=== PATIENT | male | born 1960 | race Caucasian/White ===

== ENCOUNTER 2023-08-01 13:00 | Emergency (ER) | payer MEDICARE, SELFPAY ==
[2023-08-01 13:00] VITALS: BMI 32.9
[2023-08-01 13:02] VITALS: BP 134/78
[2023-08-01 13:28] VITALS: BP 130/89
--- NOTE | 2023-08-01 13:30 | ED.GENMED ---
History of Present Illness
General
Chief Complaint: Abnormal Lab Value
Time Seen by Provider: 08/01/23 13:29
History of Present Illness
History of Present Illness:
HPI: Patient presents due to abnormal outpatient lab value of platelet count 30 two days ago and 27 yesterday. 2 weeks ago he had a really small cut on his finger which he said bled rather excessively but otherwise he notes no significant bleeding
and has no petechial rash. In 2022 his platelet count was 115. No new medications but he does report an MS med given as an infusion in 2016 which caused leukopenia.
EXAM:
GENERAL: Well appearing in no distress
HEENT: Moist oral mucosa
CARDIOVASCULAR: No murmurs, normal heart rate, regular rhythm, No chest wall tenderness
PULMONARY: No respiratory distress, breath sounds are clear and equal
ABDOMEN: Soft with no peritoneal signs, no tenderness
NEUROLOGIC: Excellent strength all extremities, no coordination deficits
PSYCHIATRIC: Appropriate mental status, normal insight and judgement
EXTREMITIES: Nontender, no edema, moves all extremities equally
SKIN: No rash, no lesions, no petechial rash
TIME OF INITIAL ENCOUNTER: 1:40 PM
NUMBER AND COMPLEXITY OF PROBLEMS ADDRESSED AT THE ENCOUNTER
� Chronic conditions affecting care: MS
� Acute Exacerbation and/or Progression of Chronic Illness: This is an acute problem
� Differential Diagnosis includes: ITP, TTP, medication induced thrombocytopenia
AMOUNT AND/OR COMPLEXITY OF DATA TO BE REVIEWED AND ANALYZED
� I performed an independent evaluation of and my interpretation is:
EKG:
CT:
X-rays:
Laboratory Studies: White count 7.1, hemoglobin 14.9, platelets 37, chemistries unremarkable
Other:
� Review of other/old records: I reviewed the lab work on his phone from the [employer] system as summarized above in the HPI
� Clinical information was obtained by an independent historian: I spoke to the at bedside
� Prescriptions/Medications Considered but not given:
� Further testing considered but not performed:
RISK OF COMPLICATIONS AND/OR MORBIDITY OR MORTALITY OF PATIENT MANAGEMENT
� Social determinants of health affecting care: Lives at home
� Discussion with other providers: I discussed his case with Dr. Garcia�he recommends dexamethasone 40 mg orally for 4 days
� Escalation of care including admission/observation vs risk of discharge considered: Will start steroids and he is to follow-up with PMD for repeat CBC early this week. He will follow-up with Dr. Garcia if his platelets continue
to worsen. Suspect ITP.
Phy Exam
Physical Exam
Physical Exam:
See HPI
Course
Orders/Labs/Results
Orders:
Orders
08/01/23 13:30
Complete Blood Count/With Diff Urgent
Comprehensive Metabolic Panel Urgent
Abnormal Lab Results
08/01/23
13:30
Plt Count 37 L 10^3/uL
(130-400)
MPV 13.1 H fL
(7.4-10.4)
Glucose 110 H mg/dl
(70-99)
Alkaline Phosphatase 158 H U/L
(38-126)
08/01/23 13:30
08/01/23 13:30
Vital Signs
Initial and Last Documented VS:
Initial Vital Signs
Temp Pulse Resp BP Pulse Ox
98.9 F 75 18 134/78 99
08/01/23 13:02 08/01/23 13:02 08/01/23 13:02 08/01/23 13:02 08/01/23 13:02
Last Documented Vital Signs
Temp Pulse Resp BP Pulse Ox
98.9 F 75 18 114/75 94
08/01/23 13:02 08/01/23 13:02 08/01/23 13:02 08/01/23 15:00 08/01/23 15:01
*Critical Care Note
Total Time (30-74mins, 75-104mins- exclusive of procedures): Not Applicable
ED Attending Note
-
Portions of this chart may have been created with voice recognition software.� Occasional wrong word or��sound alike� substitutions may have occurred due to the inherent limitations of voice recognition software.
Discharge Plan
Departure
Patient Disposition: Home (Routine Discharge)
Date of Disposition: 08/01/23
Time of Disposition: 15:55
Patient with high blood pressure during this ER visit?: Yes
Discharge Problem:
Thrombocytopenia
Prescriptions:
New
dexamethasone 4 mg tablet
40 mg PO DAILY Qty: 40 0RF
No Action
atorvastatin 40 mg Tablet
40 mg PO HS
ibuprofen [Advil] 200 mg Tablet
200 mg PO BIDPRN PRN (Reason: mild pain)
diltiazem HCl 180 mg capsule,ext.rel 24h degradable
180 mg PO DAILY
magnesium tablet
1 tab PO Q48H
cholecalciferol (vitamin D3) 100 mcg (4,000 unit) Tablet
100 mcg PO DAILY
Referrals:
Tony Reyna MD [Family Provider] -
Rajan Garcia MD [Active] - Follow up in 1 week
Activity Restrictions/Additional Instructions:
Take 10 of the 4 mg strength dexamethasone each morning for the next 4 days. This may lead to trouble sleeping�if you have trouble sleeping I recommend taking Benadryl or [id number] doxylamine. Have a repeat CBC arranged by your primary care
doctor on Friday. The platelet count today is 37. If platelet count drops again, Dr. Garcia wants you to follow-up with him.
Interventions
Interventions:
*Risk Screen - Suicide Last Done: 08/01/23 13:02
*General Assessment Last Done: 08/01/23 13:02
*Neglect/Abuse Screening Last Done: 08/01/23 13:02
ED- Fall Risk Assessment Last Done: 08/01/23 13:47
Discharge Date and Time
Print Language: MALDIVIAN
[2023-08-01 13:44] LABS: % Basophils 0.6 % (0-2); % Eosinophils 1.3 % (0-6); % Immature Granulocytes 0.1 % (0-0.5); % Lymphocytes 22.9 % (20.5-51.1); % Monocytes 7.4 % (1.7-9.3); % Neutrophils 67.7 % (42.2-75.2); Absolute Eosinophils 0.1 10^3/uL (0-0.7); Absolute Lymphocytes 1.6 10^3/uL (1.2-3.4); Absolute Monocytes 0.5 10^3/uL (0.1-0.6); Absolute Neutrophils 4.8 10^3/uL (1.4-6.5); Hematocrit 42.4 % (39.0-52.0); Hemoglobin 14.9 g/dL (13.0-18.0); Mean Corp Hgb Conc. 35.1 g/dL (33.0-37.0); Mean Corpuscular Hgb 30.5 pg (27.0-31.0); Mean Corpuscular Volume 86.7 fL (80.0-94.0); Nucleated Red Blood Cells % 0 % (-); Red Blood Cell Count 4.89 10^6/uL (4.70-6.10); Red Cell Dist. Width 13.2 % (11.5-14.5); White Blood Cell Count 7.1 10^3/uL (4.8-10.8)
[2023-08-01 13:54] LABS: ALT (SGPT) 24 U/L (0-50); AST (SGOT) 26 U/L (17-59); Albumin 4.3 g/dl (3.5-5.0); Alkaline Phosphatase 158 U/L (38-126); Blood Urea Nitrogen 9 mg/dl (9-20); Calcium 9.4 mg/dl (8.4-10.2); Carbon Dioxide 28 mmol/L (22-30); Chloride 105 mmol/L (98-107); Estimated Creatinine Clearance 123 ml/min; Glucose 110 mg/dl (70-99); Potassium 4.2 mmol/L (3.5-5.1); Sodium 141 mmol/L (135-145); Total Bilirubin 0.8 mg/dl (0.2-1.3); Total Protein 6.9 g/dl (6.3-8.2); eGFR > 60.00
[2023-08-01 14:00] VITALS: BP 125/91
[2023-08-01 14:32] LABS: Mean Platelet Volume 13.1 fL (7.4-10.4); Platelet Count 37 10^3/uL (130-400)
[2023-08-01 15:00] VITALS: BP 114/75
[2023-08-01 16:00] VITALS: BP 126/82
== END 2023-08-01 16:27 | disposition home or self-care (01) ==
LOC: EMR 13:00
PROVIDERS: EMERGENCY PHYSICIAN Emergency Medicine; FAMILY PHYSICIAN Family Medicine
DX: D69.6 Thrombocytopenia, unspecified (principal)
CPT/HCPCS: 99283; 80053; 85025

== ENCOUNTER 2024-03-05 15:58 | Emergency (ER) | payer BC, SELFPAY ==
[2024-03-05 16:02] VITALS: BP 138/95
--- NOTE | 2024-03-05 20:04 | ED.GENMED ---
History of Present Illness
General
Chief Complaint: Head Injury
Source: patient
Exam Limitations: none
Time Seen by Provider: 03/05/24 16:59
Nursing documentation reviewed up to this point in time: agreed with
History of Present Illness
History of Present Illness:
Patient states he was outside washing his truck and slpped on icy surface. Fall onto his driveway and hit left parietal scalp. No LOC. Has large hematoma to site. Incident occurred this afternoon. Brought to ED by spouse for eval.
Past History
Past History
ED Past Medical History: None
ED Past Surgical History: None
Review of Systems
Review of Systems
Allergies reviewed?: Yes
All Other Systems: ROS reviewed and negative except as documented in HPI and ROS
Constitutional: Reports no symptoms
EENT: Reports no symptoms
Respiratory: Reports no symptoms
Cardiac: Reports no symptoms
ABD/GI: Reports no symptoms
Musculoskeletal: Reports no symptoms
Skin: Reports other (large hematoma to left parietal scalp.)
Neurological: Reports no symptoms
Psychiatric: Reports no symptoms
Phy Exam
General Physical Exam
General Presentation: well appearing and no apparent distress
General age: appears stated age
General Skin: warm and dry
General Habitus: normal
ENT Exam
ENT Exam: EOMI, TM's normal and neck supple
Eye Exam
Eye Exam: PERRL, EOMI, conjunctiva normal and globe normal
Neurological Exam
Neurological Exam: alert, oriented x3, CN II-XII intact, no motor deficits, no sensory deficits and speech normal
[place] Coma Scale
Eye Opening: Spontaneous
Verbal Response: Oriented
Motor Response: Obeys Commands
GCS Total Score: 15
Musculoskeletal Exam
Musculoskeletal Exam: full ROM and neuro vasc intact
Skin Exam
Skin Exam: normal color, warm/dry, no rash and other (Large hematoma to left parietal scalp)
Psychiatric Exam
Psychiatric Exam: normal mood/affect
Course
Orders/Labs/Results
Orders:
Orders
03/05/24 18:25
CT Head W/o Iv Contrast Urgent
Comment:
Reason For Exam: trauma
Vital Signs
Initial and Last Documented VS:
Initial Vital Signs
Temp Pulse Resp BP Pulse Ox
97.7 F 85 18 138/95 97
03/05/24 16:02 03/05/24 16:02 03/05/24 16:02 03/05/24 16:02 03/05/24 16:02
Last Documented Vital Signs
Temp Pulse Resp BP Pulse Ox
97.7 F 85 18 138/95 97
03/05/24 16:02 03/05/24 16:02 03/05/24 16:02 03/05/24 16:02 03/05/24 16:02
*Radiology
Radiology exam reviewed: radiology read reviewed
*Pulse Oximetry
Patient hypoxic: no
*Critical Care Note
Total Time (30-74mins, 75-104mins- exclusive of procedures): Not Applicable
Update Note
Update Note:
Patient to ED s/p fall. Large hematoma to left parietal scalp. CT neg for bleeding, skull fx. Neurologically baseline. Will discharge home. Given instructions on s/s to return to ED and he is agreeable to plan
ED Attending Note
-
Portions of this chart may have been created with voice recognition software.� Occasional wrong word or��sound alike� substitutions may have occurred due to the inherent limitations of voice recognition software.
Discharge Plan
Departure
Patient Disposition: Home (Routine Discharge)
Date of Disposition: 03/05/24
Time of Disposition: 20:00
Patient with high blood pressure during this ER visit?: No
Condition: Good
Covid-19: Not Applicable
Discharge Problem:
Head injury
Instructions: Head Injury in Adults (DC), Contusion (DC)
Prescriptions:
No Action
atorvastatin 40 mg Tablet
40 mg PO HS
ibuprofen [Advil] 200 mg Tablet
200 mg PO BIDPRN PRN (Reason: mild pain)
diltiazem HCl 180 mg capsule,ext.rel 24h degradable
180 mg PO DAILY
magnesium tablet
1 tab PO Q48H
cholecalciferol (vitamin D3) 100 mcg (4,000 unit) Tablet
100 mcg PO DAILY
dexamethasone 4 mg tablet
40 mg PO DAILY Qty: 40 0RF
Referrals:
Tony Reyna MD [Family Provider] - Follow up in 2-3 days
Interventions
Interventions:
*Risk Screen - Suicide Last Done: 03/05/24 16:02
*General Assessment Last Done: 03/05/24 16:02
*Neglect/Abuse Screening Last Done: 03/05/24 16:02
*ED COVID-19 Vaccine History Last Done: 03/05/24 16:25
ED-Musculoskeletal Assessment Last Done: 03/05/24 16:25
ED- Neurological Assessment Last Done: 03/05/24 16:25
ED-Skin Assessment Last Done: 03/05/24 16:25
Discharge Date and Time
Print Language: MOHAWK
== END 2024-03-05 20:31 | disposition home or self-care (01) ==
LOC: EMR 15:58
PROVIDERS: EMERGENCY PHYSICIAN Student in an Organized Health Care Education/Training Program; FAMILY PHYSICIAN Family Medicine
DX: S09.90XA Unspecified injury of head, initial encounter (principal); W19.XXXA Unspecified fall, initial encounter
CPT/HCPCS: 99284; 70450

== ENCOUNTER 2024-08-06 12:19 | Inpatient (IN) | payer BC, SELFPAY ==
[2024-08-06 05:26] VITALS: BP 124/95
--- NOTE | 2024-08-06 06:18 | ED.GENMED ---
History of Present Illness
General
Chief Complaint: Abdominal Pain
Source: patient and spouse
Exam Limitations: none
Time Seen by Provider: 08/06/24 06:01
Nursing documentation reviewed up to this point in time: agreed with
History of Present Illness
History of Present Illness:
The patient is a pleasant 64-year-old man with a past medical history of diverticulosis who comes in with complaints of intermittent left-sided abdominal pain. Patient reports that it started about 4 days ago. Patient reports that it comes and
goes. At times it last for hours and becomes severe. Patient reports that it then lessens up and goes away completely. Patient reports that last night he experienced the pain again and describes it as unbearable. Patient reports it is currently
3 out of 10. He reports it does not seem to necessarily be related to eating. He reports that the pain is associated with nausea but no vomiting. Patient reports he generalize a bowel movement every day but has only had about 1-2 bowel movements
so far this week. His last bowel movement was 2 days ago. He denies fever. He denies urinary symptoms. Patient reports he always has elevated liver function test and is currently undergoing testing with a GI doctor for this.
Past History
Past History
ED Past Medical History: Other (Diverticulosis) and Other (Fatty liver, elevated LFTs at baseline, multiple sclerosis, ITP)
ED Past Surgical History: Other
Social History
Tobacco: Non-smoker
Alcohol: None
Drug: None
Personal:
Living: with family
Employment: Other
Family History
Family History: Other
Review of Systems
Review of Systems
Allergies reviewed?: Yes
All Other Systems: ROS reviewed and negative except as documented in HPI and ROS
Constitutional: Reports no symptoms
EENT: Reports no symptoms
Respiratory: Reports no symptoms
Cardiac: Reports no symptoms
ABD/GI: Reports abdominal pain, nausea and constipated
: Reports no symptoms
Musculoskeletal: Reports no symptoms
Skin: Reports no symptoms
Neurological: Reports no symptoms
Endocrine: Reports no symptoms
Hematologic/Lymphatic: Reports no symptoms
Psychiatric: Reports no symptoms
Phy Exam
Physical Exam
Physical Exam:
Physical Exam
General: no apparent distress, not acutely ill. Well appearing
Neck: supple. no meningeal signs. normal psoterior pharynx
Heart: s1/s2 regular rate and rhythm, no murmur. equal radial pulses.
Lungs: no acute respiratory distress. clear bilaterally
Abdomen: Soft, mildly distended, no rebound or guarding, no pulsatile mass, left-sided abdominal tenderness
Neuro: alert and oriented. no focal neurological deficits
Skin: no rash
Psychiatric: well kept. interactive and cooperative
Extremities: no edema. no calf tenderness. negative homans. good distal pulses
Course
Orders/Labs/Results
Orders:
Orders
08/06/24 06:22
Complete Blood Count/With Diff Urgent
Comprehensive Metabolic Panel Urgent
Lipase Urgent
08/06/24 07:14
CT Abd/pelvis W Iv Cont Urgent
Comment:
Reason For Exam: left sided abdominal pain
08/06/24 08:49
Urinalysis Reflex To Culture Urgent
Date Specimen was Collected: 08/06/24
Time Specimen was Collected: 08:45
Urine Microscopic Reflex Cult Urgent
08/06/24 09:59
Ciprofloxacin 400 mg/[id number] [Cipro 400 mg] 200 ml IV NOW
Abnormal Lab Results
08/06/24 08/06/24
06:22 08:49
WBC 12.5 H 10^3/uL
(4.8-10.8)
RBC 4.67 L 10^6/uL
(4.70-6.10)
MPV 12.3 H fL
(7.4-10.4)
Absolute Neuts (auto) 10.8 H 10^3/uL
(1.4-6.5)
Absolute Lymphs (auto) 0.7 L 10^3/uL
(1.2-3.4)
Absolute Monos (auto) 0.8 H 10^3/uL
(0.1-0.6)
Neutrophils % 86.7 H %
(42.2-75.2)
Lymphocytes % 5.9 L %
(20.5-51.1)
Chloride 110 H mmol/L
(98-107)
Glucose 121 H mg/dl
(70-99)
Alkaline Phosphatase 201 H U/L
(38-126)
Total Protein 6.2 L g/dl
(6.3-8.2)
Ur Occult Blood Reflex 3+ A
(Negative)
Urine RBC 40-50 A /HPF
(0-2)
Urine Albumin (Reflex) 1+ A
(Neg - Trace)
08/06/24 06:22
08/06/24 06:22
Vital Signs
Initial and Last Documented VS:
Initial Vital Signs
Temp Pulse Resp BP Pulse Ox
99.0 F 81 20 124/95 98
08/06/24 05:26 08/06/24 05:26 08/06/24 05:26 08/06/24 05:26 08/06/24 05:26
Last Documented Vital Signs
Temp Pulse Resp BP Pulse Ox
99.0 F 81 20 124/95 97
08/06/24 05:26 08/06/24 05:26 08/06/24 05:26 08/06/24 05:26 08/06/24 06:26
MDM/Problems Addressed
Differential Diagnosis Includes:
Acute pancreatitis, acute gastritis, partial bowel obstruction
MDM/Problems Addressed:
Patient presents with acute left-sided abdominal pain
Chronic conditions affecting care:
ITP
Acute Exacerbation and/or Progression of Chronic Illness:
Patient could have spontaneous intra-abdominal bleeding due to exacerbation of ITP. Will check platelet count
*Radiology
Radiology exam reviewed: radiology read reviewed
*Pulse Oximetry
SaO2: 98
Oxygen Mode of Delivery: Room air
Patient hypoxic: no
Comment: 98% on room air
*EKG
Interpreted by ED Provider?: NA
*[employer] Interpretation
Rate: normal
Interpretation: normal
Rhythm: sinus
*Critical Care Note
Total Time (30-74mins, 75-104mins- exclusive of procedures): Not Applicable
Data Reviewed
Review of Other/Old Records Reveals: Labs (Platelet count in 37 in 2023)
Source: patient and spouse
Patient Management
Social determinants of health affecting care: Living situation and Strong social support
Discussion with other providers: Hospitalist and Other (Dr. harris made aware of patient. He is agreeable to IV antibiotics and procedure for large kidney stone either today or tomorrow)
ED Attending Note
-
Portions of this chart may have been created with voice recognition software.� Occasional wrong word or��sound alike� substitutions may have occurred due to the inherent limitations of voice recognition software.
Discharge Plan
Departure
Patient Disposition: Admit
Date of Disposition: 08/06/24
Time of Disposition: 09:57
Admit to: Med/Surg
Presentation/result/management discussed w/ accepting MD/DO: Hospitalist
Patient with high blood pressure during this ER visit?: No
Condition: Good
Discharge Problem:
Calculus of distal left ureter
Prescriptions:
No Action
atorvastatin 40 mg Tablet
40 mg PO HS
ibuprofen [Advil] 200 mg Tablet
200 mg PO BIDPRN PRN (Reason: mild pain)
diltiazem HCl 180 mg capsule,ext.rel 24h degradable
180 mg PO DAILY
magnesium tablet
1 tab PO Q48H
cholecalciferol (vitamin D3) 100 mcg (4,000 unit) Tablet
100 mcg PO DAILY
dexamethasone 4 mg tablet
40 mg PO DAILY Qty: 40 0RF
Referrals:
Tony Reyna MD [Family Provider, Family Practice]
Interventions
Interventions:
*Risk Screen - Suicide Last Done: 08/06/24 05:26
*General Assessment Last Done: 08/06/24 08:05
*Neglect/Abuse Screening Last Done: 08/06/24 08:08
*ED- Fall Risk Assessment Last Done: 08/06/24 08:05
*ED COVID-19 Vaccine History Last Done: 08/06/24 08:05
YX-[id number]-[id number] Assessment Last Done: 08/06/24 08:10
Discharge Date and Time
Print Language: NAURUAN
[2024-08-06 06:26] VITALS: BP 112/81
[2024-08-06 06:53] LABS: % Basophils 0.2 % (0-2); % Eosinophils 0.4 % (0-6); % Immature Granulocytes 0.3 % (0-0.5); % Lymphocytes 5.9 % (20.5-51.1); % Monocytes 6.5 % (1.7-9.3); % Neutrophils 86.7 % (42.2-75.2); Absolute Eosinophils 0.1 10^3/uL (0-0.7); Absolute Lymphocytes 0.7 10^3/uL (1.2-3.4); Absolute Monocytes 0.8 10^3/uL (0.1-0.6); Absolute Neutrophils 10.8 10^3/uL (1.4-6.5); Hematocrit 41.3 % (39.0-52.0); Hemoglobin 14.1 g/dL (13.0-18.0); Mean Corp Hgb Conc. 34.1 g/dL (33.0-37.0); Mean Corpuscular Hgb 30.2 pg (27.0-31.0); Mean Corpuscular Volume 88.4 fL (80.0-94.0); Mean Platelet Volume 12.3 fL (7.4-10.4); Nucleated Red Blood Cells % 0 % (-); Platelet Count 134 10^3/uL (130-400); Red Blood Cell Count 4.67 10^6/uL (4.70-6.10); Red Cell Dist. Width 13.8 % (11.5-14.5); White Blood Cell Count 12.5 10^3/uL (4.8-10.8)
[2024-08-06 07:00] VITALS: BP 114/77
[2024-08-06 07:10] LABS: ALT (SGPT) 24 U/L (0-50); AST (SGOT) 22 U/L (17-59); Alkaline Phosphatase 201 U/L (38-126); Blood Urea Nitrogen 16 mg/dl (9-20); Calcium 9.6 mg/dl (8.4-10.2); Carbon Dioxide 24 mmol/L (22-30); Chloride 110 mmol/L (98-107); Glucose 121 mg/dl (70-99); Lipase 114 U/L (23-300); Potassium 4.2 mmol/L (3.5-5.1); Sodium 140 mmol/L (135-145); Total Bilirubin 0.7 mg/dl (0.2-1.3); Total Protein 6.2 g/dl (6.3-8.2); eGFR > 60.00
[2024-08-06 08:00] VITALS: BP 115/79
[2024-08-06 08:04] VITALS: BMI 31.4
[2024-08-06 09:03] LABS: Urine Albumin 1+ (Neg - Trace); Urine Bilirubin Negative (Negative); Urine Character Clear (Clear); Urine Color Yellow; Urine Glucose Negative (Negative); Urine Ketone Negative (Negative); Urine Leukocyte Negative (Negative); Urine Nitrite Negative (Negative); Urine Occult Blood 3+ (Negative); Urine Specific Gravity 1.015 (<1.030); Urine Urobilinogen Negative (Neg - 1+)
[2024-08-06 09:28] LABS: Urine Squamous Cell 0-2 /LPF (Few)
[2024-08-06 09:29] LABS: Urine Amorphous Seen
[2024-08-06 09:30] LABS: Urine Red Blood Cell 40-50 /HPF (0-2)
--- NOTE | 2024-08-06 12:06 | HPS.HSE ---
Family Physician
-
Family Physician: Tony Hernandez [facility]
Chief Complaint
-
Left leg pain
History of Present Illness
Patient noticed acute left flank pain on Friday which lasted for an hour. It diarrhea gas pain. It resolved completely.
It came back yesterday again and lasted for many hours including last night. Constant nausea with no vomiting. Pain was persistent without relief so he came to the ER. Denies any dysuria or frequency of urine.
In the ER now he says his pain-free.
No fever or chills.
Denies prior history of kidney stones.
CT of the abdomen pelvis shows 9 mm stone in the left ureteropelvic junction with mild hydronephrosis with the stranding around and also mild perinephric stranding with fluids and delayed left renal nephrogram. Patient is getting admitted for pain
management as well as definitive treatment for kidney stone.
Medical History
Past Medical History
Past Medical History: Reports Hypercholesterolemia and Other (History of MS not on treatment.History of ITP with one of the MS medication. History of irregular heartbeat)
Additional Past Medical History:
Fatty liver
Past Surgical History: Reports Other (Back surgery)
Social History
Tobacco: Non-smoker
Alcohol: None
Drug: None
Personal:
Family History
Family History: Not pertinent
Allergies / Home Medications
Allergies reflects when Allergies were last updated in [employer].
Home Medications with original date entered in [employer]
Allergy/Medication List:
Allergies
Allergy/AdvReac Type Severity Reaction Status Date / Time
alemtuzumab (From Lemtrada) Allergy Unknown Verified 08/06/24 05:26
gabapentin Allergy Unknown Verified 08/06/24 05:26
Home Medications
atorvastatin 40 mg tablet 40 mg PO HS High Cholesterol 08/01/23
diltiazem HCl 180 mg capsule,extended release 24 hr, controlled 180 mg PO DAILY Blood Pressure 08/01/23
Liver Cleansing Supplement 1 tab PO DAILY 08/06/24
cholecalciferol (vitamin D3) 125 mcg (5,000 unit) tablet 125 mcg PO DAILY 08/06/24
cyanocobalamin (vitamin B-12) 1,000 mcg tablet 1,000 mcg PO DAILY 08/06/24
magnesium 200 mg tablet 200 mg PO Q48H 08/06/24
omeprazole 20 mg capsule,delayed release 20 mg PO Q48H 08/06/24
Review of Systems
-
A 12 point ROS was completed and negative except as noted: Yes
Physical Exam
Vital Signs
Vital Signs
Temp Pulse Resp BP Pulse Ox
99.0 F 81 20 124/95 97
08/06/24 05:26 08/06/24 05:26 08/06/24 05:26 08/06/24 05:26 08/06/24 06:26
Physical Exam
General: No Apparent Distress and Comfortable
Respiratory: Clear and Non Labored Respirations; No Accessory Resp Muscle Use
Cardiac: S1/S2 and Regular Rhythm; No Tachycardia
GI: Soft, Non Tender, Non Distended and Normal Bowel Sounds
Genito-urinary: No costovertebral tender
Neuro: AO x 3
Psych: Calm
Laboratory Results
-
08/06/24 06:22
08/06/24 06:22
Laboratory Results
Total Bilirubin 0.7 mg/dl (0.2-1.3) 08/06/24 06:22
AST 22 U/L (17-59) 08/06/24 06:22
ALT 24 U/L (0-50) 08/06/24 06:22
Alkaline Phosphatase 201 U/L (38-126) H 08/06/24 06:22
Lipase 114 U/L (23-300) 08/06/24 06:22
Data Reviewed
-
CT Scan: Report Reviewed by me (CT A/P)
Lab Data: Labs Reviewed by me
Impression/Plan
-
Left flank pain secondary to left UPJ junction stone-pain intermittent suspicious for intermittent obstruction. Size of the stone is 9 mm.
Associated left hydronephrosis and also delayed left nephrogram raising concern for obstructive uropathy but creatinine is normal so far. Continue to follow BMP. Consulted urology for definitive management of the stone.
Associated thickening of the left renal pelvis and left perinephric stranding and fluid concerning for pyelonephritis-continue ciprofloxacin initiated in the ER. Check EKG.
Hyperlipidemia-continue with statins
History of PACs on Cardizem continue
History of MS-not on any treatments
History of ITP-platelets are adequate.
Full code
[2024-08-06] MEDS: CIPRO 400 MG 200 IV ×2 (12:19→23:22)
--- NOTE | 2024-08-06 13:01 | CM ---
CM reviewed chart and met with pt and his bedside in ED
Lives with in one story home, no MARK.
Independent in ADLs, personal care, driving and ambulation at baseline. No DME.
Hx VN, no hx SNF.
PCP: Tony Khan
[facility] [address]
Discharge plan: Anticipate home, watch for needs
[2024-08-06 14:21] VITALS: BP 121/71
[2024-08-06] MEDS: MAG-TAB SR 84 MG PO (15:47)
[2024-08-06] MEDS: LOVENOX 40 MG SC (17:52)
--- NOTE | 2024-08-06 18:25 | PTCARENOTE ---
1415- PT received from ED via stretcher, AAOX3. Pt accompanied by , daughter and ED staff. Pt ambulated from stretcher to standing scale with steady gait. Pt oriented to staff, environment and call light system. Pt with personal items and
call light within reach. All needs met.
--- NOTE | 2024-08-06 20:18 | W.PN.UPDATE ---
Update Note
Progress Note Update
64M w/ large obstructing 9 mm left UPJ stone w/ hydronephrosis and intractable pain - improved in ED.
UA +WBCs/RBCs.
CT demonstrating urothelial thickening suspicious for ascending cUTI.
Afebrile, non-toxic, HDS
WBC 13k
Cr WNL
To OR tomorrow AM for left ULS
[email or web address]
Continue IV Ciprofloxacin for antibiotic prophylaxis
UCx sent/pending
D/w patient, spouse, and daughter in room this evening.
[2024-08-06] MEDS: LIPITOR 40 MG PO (21:15)
[2024-08-06 23:00] VITALS: BP 105/65
[2024-08-07] VITALS (8 sets, daily range): BP systolic 115–135; BP diastolic 79–94
[2024-08-07] MEDS: TYLENOL 650 MG PO (00:48)
[2024-08-07] MEDS: CARDIZEM CD 180 MG PO (07:42)
[2024-08-07] MEDS: VITAMIN D3 (cholecalciferol) 125 MCG PO (07:42)
[2024-08-07] MEDS: VITAMIN B-12 1000 MCG PO (07:42)
[2024-08-07 08:15] LABS: Hematocrit 42.5 % (39.0-52.0); Hemoglobin 14.4 g/dL (13.0-18.0); Mean Corp Hgb Conc. 33.9 g/dL (33.0-37.0); Mean Corpuscular Hgb 30.4 pg (27.0-31.0); Mean Corpuscular Volume 89.9 fL (80.0-94.0); Mean Platelet Volume 12.8 fL (7.4-10.4); Platelet Count 132 10^3/uL (130-400); Red Blood Cell Count 4.73 10^6/uL (4.70-6.10); Red Cell Dist. Width 13.7 % (11.5-14.5); White Blood Cell Count 6.7 10^3/uL (4.8-10.8)
[2024-08-07 08:40] LABS: Blood Urea Nitrogen 14 mg/dl (9-20); Calcium 9.2 mg/dl (8.4-10.2); Carbon Dioxide 26 mmol/L (22-30); Chloride 108 mmol/L (98-107); Estimated Creatinine Clearance 119 ml/min; Glucose 108 mg/dl (70-99); Potassium 4.1 mmol/L (3.5-5.1); Sodium 142 mmol/L (135-145); eGFR > 60.00
--- NOTE | 2024-08-07 08:51 | W.IMMPOSTOP ---
Surgical Immed Post Op Note
-
Primary Surgeon: Vianney
Pre-op Diagnosis: Obstructing large left UPJ stone
Post-op Diagnosis: Same
Procedure Performed: Left ureteroscopy/laser lithotripsy/stone extraction/stent placement
Anesthesia Type: LMA
Specimen / Cultures: Stones for analysis/None
Estimated Blood Loss: Negligible
Drains: 4.7Fr x 26 cm JJ left ureteral stent
Complications: None
Operative Findings:
10 mm obstructing UPJ stone manipulated into upper pole calyx - fragmented to <3 mm stone fragments and stone dust.
Final KUB and cystoscopy confirming left ureteral stent position.
[2024-08-07] MEDS: DETROL LA 4 MG PO (09:25)
[2024-08-07] MEDS: Pyridium 200 MG PO (09:25)
--- NOTE | 2024-08-07 10:45 | PTCARENOTE ---
0750-Pt sent off to OR for surgery, AAOX3. Pt aware. No distress noted. VSS. All needs met.
--- NOTE | 2024-08-07 10:47 | PTCARENOTE ---
0950- Pt received in bed in his room from PACU. Pt AAOX3. No report of distress at this time. Personal items and call light within reach. All needs met.
--- NOTE | 2024-08-07 11:36 | W.PN.UPDATE ---
Update Note
Progress Note Update
08/07: s/p left ureteroscopy, laser lithotripsy, stone extraction, stent placement.
Urine clear intraop.
Received IV Ancef 2g this AM in OR.
OK to d/c home per Urology
F/U in 2 weeks for cystoscopy/stent removal
D/w patient.
D/w Hospitalist.
--- NOTE | 2024-08-07 12:01 | CM ---
Patient seen at bedside
OR today
s/p left ureteroscopy, laser lithotripsy, stone extraction, stent placement.
discharge today
IMM n/a
PLAN: Home, no needs
to transport
--- NOTE | 2024-08-07 12:05 | W.PN.HOSP.TC ---
Today's Communication/Plan
-
d/c
Assessment / Plan
Assessment / Plan
pt is a 64 year old male
Left flank pain secondary to left UPJ junction stone--apprec urology--s/p left ureteroscopy, laser lithotripsy, stone extraction, stent placement--cleared for d/c by urology--no abx needed
Hyperlipidemia-continue with statins
History of PACs on Cardizem continue
History of MS-not on any treatments
History of ITP-platelets are adequate
Anticipated Discharge: Today
Subjective/Interval History
-
Date of Service: August 07, 2024
pt waiting for lunch--cleared for d/c by urology
Objective Data
-
Labs:
Laboratory Results
08/07/24
07:30
WBC 6.7
Hgb 14.4
Hct 42.5
Plt Count 132
Sodium 142
Potassium 4.1
Chloride 108 H
Carbon Dioxide 26
BUN 14
Creatinine 0.7
Glucose 108 H
Calcium 9.2
Vital Signs:
max temp for 24 hours
08/06/24
23:00
Temp 99.1 F
Vital Signs
Temp Pulse Resp BP Pulse Ox
97.4 F 52 16 115/79 96
08/07/24 10:20 08/07/24 10:20 08/07/24 10:20 08/07/24 10:20 08/07/24 10:20
I&O
08/06/24 08/07/24 08/08/24
06:59 06:59 06:59
Intake Total 120 / 120 150 / 150
Output Total 450 / 450
Balance -330 / -330 150 / 150
Review of Systems
-
All other systems: Reviewed and negative
Physical Exam
-
General: Well Developed, Well Nourished and No Apparent Distress
HEENT: Normocephalic and Atraumatic
Respiratory: Clear to Auscultation; Negative Wheezes or Rhonchi
Cardiac: Regular Rhythm and S1/S2; Negative Murmur
GI: Soft, Nontender, Nondistended and Normal Bowel Sounds
Musculoskeletal: No Clubbing, No Cyanosis and No Edema
Neuro: Awake
[2024-08-07] MEDS: CIPRO 400 MG 200 IV (12:19)
--- NOTE | 2024-08-07 13:46 | W.DCSUMMARY ---
Discharge Summary
Discharge Data
Date of Admission: 08/06/24
Date of Discharge: 08/07/24
-
Pending Results: No
Hospital Course
Primary care physician : Tony Reyna
Principal Discharge diagnosis : Left flank pain secondary to left UPJ junction stone
Chronic Discharge diagnosis : Hyperlipidemia, history of premature atrial contractions, history of MS, history of ITP
Hospital Course : Patient was a 64-year-old male who had acute left flank pain on Friday earlier this week which lasted for an hour. He also had diarrhea with gas pains. Pain resolved but came back again on the day prior to admission and lasted
for many hours including through the night. He had constant nausea but no vomiting. Since the pain did not kandice he came to the emergency department. He denied any dysuria or frequency. He denied fevers or chills. Denied any prior history of
kidney stones. CAT scan of the abdomen and pelvis showed a 9 mm stone in the left ureteropelvic junction with mild hydronephrosis. Patient was admitted.
Problem #1: Left flank pain secondary to left UPJ junction stone. Patient was admitted and seen in consultation by urology. On August 07, 2024 patient had a left ureteroscopy, laser lithotripsy, stone extraction with stent placement. Urinalysis was
clean intraoperatively. Patient did receive IV Ancef prior to surgery. He has been cleared for discharge by urology without any further need for antibiotics.
Problem #2: All other medical issues. These include Hyperlipidemia, history of premature atrial contractions, history of MS, history of ITP. These medical issues were stable during his hospitalization. Medications were continued as able.
Patient is stable for discharge home at this time. If there are any questions regarding this dictation or his hospital stay, please do not hesitate to call. Our office number is [phone].
Important imaging findings :
CT SCAN ABDOMEN/PELVIS IMPRESSION:
1. Mild left hydronephrosis secondary to a 9 mm calculus lodged at the left UPJ. Mildly delayed left renal nephrogram with mild thickening stranding involving the left renal pelvis.
2. Mild hepatic steatosis.
3. Mild to moderate sigmoid diverticulosis.
Procedure findings :
s/p left ureteroscopy, laser lithotripsy, stone extraction, stent placement
Discharge Plan
-
Patient Disposition: Home (Routine Discharge)
Discharge Diagnosis/Procedures: obstructing left UPJ stone s/p left ULS, hyperlipidemia, history of premature atrial complexes, history of ITP, history of MS
Condition: Good
Diet: Regular
Activity: No restrictions
Driving Restrictions: No driving for 24 hours
Bathing Restrictions: None
Referrals:
Buck Faith MD [Active, Urology]
Referral Note: Please call [phone] to schedule a stent removal in [address] Faith in the office (local anesthetic procedure - 20-30 seconds in duration).
Tony Reyna MD [Family Provider, [facility]] - in less than 1 week
Prescriptions:
Continued
atorvastatin 40 mg Tablet
40 mg PO HS
diltiazem HCl 180 mg capsule,ext.rel 24h degradable
180 mg PO DAILY
cyanocobalamin (vitamin B-12) 1,000 mcg Tablet
1,000 mcg PO DAILY
omeprazole 20 mg Capsule,Delayed Release(Dr/Ec)
20 mg PO Q48H
magnesium 200 mg Tablet
200 mg PO Q48H
cholecalciferol (vitamin D3) 125 mcg (5,000 unit) Tablet
125 mcg PO DAILY
Liver Cleansing Supplement
1 tab PO DAILY
Discharge Orders:
Discharge Patient (As Directed); Ordered 08/07/24
Ordered By: Sarita Cisneros
Discharge Date and Time
Discharge Date/Time: 08/07/24 13:39
Print Language: [facility]
== END 2024-08-07 13:39 | disposition home or self-care (01) | DRG 661 ==
LOC: 3 WEST ACU 12:19
PROVIDERS: Surgery; ADMITTING PHYSICIAN Internal Medicine; ATTENDING PHYSICIAN Internal Medicine; EMERGENCY PHYSICIAN Emergency Medicine; FAMILY PHYSICIAN Family Medicine
PROC: 0TC78ZZ Extirpation of Matter from Left Ureter, Via Natural or Artificial Opening Endoscopic (ICD-10-PCS; 2024-08-07)
PROC: 0T778DZ Dilation of Left Ureter with Intraluminal Device, Via Natural or Artificial Opening Endoscopic (ICD-10-PCS; 2024-08-07)
DX: N13.2 Hydronephrosis with renal and ureteral calculous obstruction (principal); E78.00 Pure hypercholesterolemia, unspecified; K76.0 Fatty (change of) liver, not elsewhere classified; K57.30 Diverticulosis of large intestine without perforation or abscess without bleeding
CPT/HCPCS: 74018; 74177; 76000; 80048; 80053; 81003; 81015; 83690; 85025; 85027; 87086; 96374; 99284; C2617; Q9967

== ENCOUNTER → 2024-11-17 07:40 | Outpatient (REF) | payer BC, SELFPAY | LOC: HWRAD 07:40 | PROVIDERS: ATTENDING PHYSICIAN Surgery; FAMILY PHYSICIAN Family Medicine | DX: N13.2 Hydronephrosis with renal and ureteral calculous obstruction (principal) | CPT/HCPCS: 76775 ==